=== PATIENT | female | born 2005 | race Hispanic/Latino ===

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

== ENCOUNTER 2025-06-10 09:20 | Emergency (ER) | payer OTHER ==
[~2025-06-10 09:20] MED LIST: Iopamidol 370 76% 100 ML VIAL ONE
[2025-06-10 09:53] LABS: #Basophils 0.1 thou/uL (0.0-0.2); #Eosinophils 0.2 thou/uL (0.0-0.7); #Lymphocytes 2.3 thou/uL (1.20-3.40); #Monocytes 0.6 thou/uL (0.11-0.59); #Neutrophils 6.7 thou/uL (1.40-6.50); %Basophils 1.0 % (0.0-1.0); %Eosinophils 2.3 % (0.0-10.0); %Lymphocytes 23.3 % (28.0-48.0); %Monocytes 5.9 % (0.0-4.0); %Neutrophils 67.6 % (31.0-61.0); Hematocrit 50.4 % (36.0-47.0); Hemoglobin 15.4 g/dL (12.0-16.0); Mean Corpuscular Hemoglobin 28.4 pg (25.0-35.0); Mean Corpuscular Volume 92.8 fl (78.0-98.0); Platelet Count 318 10x3/uL (130-400); Red Blood Cell (RBC) Count 5.43 mill/uL (4.00-5.20); White Blood Cell (WBC) Count 9.8 10x3/uL (4.8-10.8)
[2025-06-10 10:08] LABS: INR-International Normal Ratio 0.9; Prothrombin Time 12.6 sec (12.0-14.7)
[2025-06-10 10:09] LABS: PTT 27.8 sec (22.9-36.1)
[2025-06-10 10:15] LABS: BHCG - Serum Negative (NEGATIVE)
[2025-06-10 10:16] LABS: Pregs Control Background? CLEAR/WHITE (CLR/WHITE); Pregs Control Bar Appear? YES (CONTROL BAR)
[2025-06-10 10:20] LABS: ALT (SGPT) 30 U/L (Less than 34); AST (SGOT) 27 U/L (11-34); Albumin 4.6 g/dL (3.1-4.5); Alkaline Phosphatase 77 U/L (40-100); Anion Gap 17 mmol/L (10-20); BUN (Urea Nitrogen) 13 mg/dL (8.4-21.0); Bilirubin, Total 0.3 mg/dL (0.3-1.2); CK (CPK) 94 U/L (29-168); Calc. Creatinine Clearance 0 mL/min (70-130); Calcium 9.6 mg/dL (7.8-10.44); Carbon Dioxide 21 mmol/L (22-29); Chloride 107 mmol/L (98-107); Globulin 3.4 g/dL (2.4-3.5); Glucose 94 mg/dL (70-105); Potassium 4.5 mmol/L (3.5-5.1); Sodium 140 mmol/L (136-145)
[2025-06-10 10:21] LABS: Acetaminophen Less than 10 mcg/mL (Less than 10); Salicylate Less than 8.0 mg/dL (Less than 8.0)
[2025-06-10] MEDS ORDERED: Acetaminophen 500 MG TAB ONE (10:30)
[2025-06-10 10:34] LABS: Cocaine Metabolite Screen Negative (Negative); THC/Cannabinoid Screen Negative (Negative); Tricyclic Screen Negative (Negative)
[2025-06-10 10:36] LABS: Troponin I Less than 0.010 ng/mL (< 0.028)
== END 2025-06-10 13:58 | disposition short-term general hospital (02) ==
LOC: MADERS 09:20
DX: R55 Syncope and collapse (principal); R41.82 Altered mental status, unspecified; R29.703 NIHSS score 3
CPT/HCPCS: 70450; 70496; 70498; 71045; 80053; 80306; 80307; 82550; 83605; 84146; 84443; 84484; 84703; 85025; 85610; 85730; 87040; 93005; 94760; Q9967